=== PATIENT | male | born 1965 | race Caucasian/White ===

== ENCOUNTER 2016-05-02 15:18 | Emergency (ER) | payer OTHER ==
[~2016-05-02] VITALS: Ht 188 cm; Wt 86.2 kg
[2016-05-02 15:18] VITALS: BP 135/89
[2016-05-02] MEDS ORDERED: HYDROCODONE/APAP 5/325MG 1 EACH TABLET ONE (15:42)
[2016-05-02] MEDS ORDERED: HYDROCODONE/APAP 5/325MG 1 EACH TABLET PO ONE (16:00)
== END 2016-05-02 15:53 | disposition home or self-care (01) ==
LOC: ER 15:21
DX: M54.5 Low back pain (principal); G89.29 Other chronic pain; C62.90 Malignant neoplasm of unspecified testis, unspecified whether descended or undescended; E89.0 Postprocedural hypothyroidism
CPT/HCPCS: 99283; A4606; Z7610

== ENCOUNTER 2017-09-11 15:47 | Emergency (ER) | payer OTHER ==
[~2017-09-11] VITALS: Ht 188 cm; Wt 86.2 kg
[2017-09-11 15:47] VITALS: BP 136/79
== END 2017-09-11 17:33 | disposition home or self-care (01) ==
LOC: ER 15:51
DX: Z76.0 Encounter for issue of repeat prescription (principal); E89.0 Postprocedural hypothyroidism
CPT/HCPCS: 99283; A4606; Z7610

== ENCOUNTER 2017-10-06 18:40 | Emergency (ER) | payer OTHER ==
[~2017-10-06] VITALS: Ht 188 cm; Wt 86.2 kg
[2017-10-06 18:40] VITALS: BP 136/92
--- NOTE | 2017-10-06 19:15 | NUR ---
RECEIVED REPORT FROM NOBLE MACHUCA FOR LEONILA.
--- NOTE | 2017-10-06 19:40 | NUR ---
PER TYSON SCHNEIDER, NO CRUTCHES WERE DISPENSED TO PT.
== END 2017-10-06 20:30 | disposition home or self-care (01) ==
LOC: ER 18:41
DX: M25.562 Pain in left knee (principal); M23.207 Derangement of unspecified meniscus due to old tear or injury, left knee; Z85.47 Personal history of malignant neoplasm of testis; Z90.89 Acquired absence of other organs; Z85.850 Personal history of malignant neoplasm of thyroid
CPT/HCPCS: 29505; 99283; A4606; Z7610

== ENCOUNTER 2021-05-12 14:04 | Emergency (ER) | payer OTHER ==
[~2021-05-12] VITALS: Ht 188 cm; Wt 88.5 kg
[2021-05-12 14:22] VITALS: BP 144/96
[2021-05-12] MEDS ORDERED: IBUP-1953 PO (14:31)
[2021-05-12] MEDS ORDERED: LEVO175T7 PO (14:31)
--- NOTE | 2021-05-12 14:31 | NUR ---
BIBS FOR MED REFILL FOR SYNTHROID 175 MCG/TAB. DENIES ANY DISTRESS. RESPIRATION REGULAR AND UNLABORED. WILL CONTINUE TO MONITOR THE PATIENT.
--- NOTE | 2021-05-12 14:35 | NUR ---
Patient discharged to home in stable condition. Written and verbal after care instructions given. Patient verbalizes understanding of instruction.
== END 2021-05-12 14:37 | disposition home or self-care (01) ==
LOC: ER 14:05
DX: Z76.0 Encounter for issue of repeat prescription (principal); Z98.890 Other specified postprocedural states; Z79.899 Other long term (current) drug therapy